=== PATIENT | male | born 1955 | race Caucasian/White ===

== ENCOUNTER → 2018-02-16 | Outpatient (CLI) | payer MEDICAID | LOC: FIMAGING 07:48 | PROVIDERS: ATTEND Internal Medicine Gastroenterology | DX: K82.8 Other specified diseases of gallbladder (principal) | CPT/HCPCS: 78227; A9537 ==

== ENCOUNTER 2018-03-27 06:24 | Day surgery (SDC) | payer MEDICAID ==
[~2018-03-27 06:24] MED LIST: cefOXitin SODIUM 2 GM in STERILE WATER INJ 21 ML IV ONE
[2018-03-27] MEDS ORDERED: LIDOCAINE 1% 2 ML INJ ID PRN (06:55)
[2018-03-27] MEDS ORDERED: LR 1,000 ML IV ONE (06:55)
[2018-03-27] MEDS ORDERED: BUPIVACAINE 0.5% 30 ML SDV ONE (06:58)
[2018-03-27] MEDS ORDERED: HEPARIN 1000 UNIT/1 ML MDV ONE (06:59)
[2018-03-27] MEDS ORDERED: ceFAZolin 1 GM/5 ML SYR ONE (06:59)
[2018-03-27] MEDS ORDERED: MIDAZOLAM 2 MG/2 ML VIAL IVP ONE (07:39)
--- NOTE | 2018-03-27 07:39 | PDANEPAE ---
ANE History of Present Illness presents for lap kaylyn ANE Past Medical History - Cardiovascular History Hx Hypertension: Yes Hx Arrhythmias: No Hx Chest Pain: No Hx Coronary Artery / Peripheral Vascular Disease: No Hx CHF / Valvular Disease: No Hx Palpitations: No - Pulmonary History Hx COPD: No Hx Asthma/Reactive Airway Disease: No Hx Recent Upper Respiratory Infection: No Hx Oxygen in Use at Home: No Hx Sleep Apnea: No Sleep Apnea Screening Result - Last Documented: Negative - Neurologic History Hx Cerebrovascular Accident: No Hx Seizures: No Hx Dementia: No - Endocrine History Hx Diabetes: No Hypothyroid: No Hyperthyroid: No Obesity: no - Renal History Hx Renal Disorders: No - Liver History Hx Hepatic Disorders: No - Neurological & Psychiatric Hx Hx Neurological and Psychiatric Disorders: No - Cancer History Hx Cancer: No - Congenital Disorder History Hx Congenital Disorders: No - GI History GERD: no Hx Gastrointestinal Disorders: Yes Gastrointestinal History Comment: epigastric pain x 1 yr. gallbladder pain - Other Health History Other Health History: "scabs over small cuts on body". Harvoni tx to eradicate Hep C - Chronic Pain History Chronic Pain: Yes (epigastric pain) - Surgical History Prior Surgeries: knee sx. L ankle scope 1989-created Staph infections - numerous sx I and D. microfracture sx- L ankle. R foot sx x 2 -rebuild calcaneous ANE Review of Systems Review of systems is: negative Review of Systems: - Exercise capacity METS (RN): 5 METS ANE Patient History - Allergies Allergies/Adverse Reactions: No Known Allergies Allergy (Verified 03/26/18 11:03) - Home Medications Home medications: home medication list seen and reviewed Home Medications: Lisinopril 06/21/16 [Last Taken Unknown] Nexium 06/21/16 [Last Taken Unknown] Dicyclomine 03/26/18 [Last Taken Unknown] - NPO status NPO Since - Liquids (Date): 03/27/18 NPO Since - Liquids (Time): 05:00 NPO Since - Solids (Date): 03/26/18 NPO Since - Solids (Time): 17:00 - Anes Hx Anes Hx: no prior problems - Smoking Hx Smoking Status: Never smoked - Family Anes Hx Family Anes Hx: none ANE Labs/Vital Signs - Vital Signs Blood Pressure: 138/92 Heart Rate: 56 Respiratory Rate: 16 O2 Sat (%): 92 Height: 177.8 cm Weight: 99.79 kg ANE Physical Exam - Airway Neck exam: FROM Mallampati Score: Class 1 Mouth exam: normal dental/mouth exam - Pulmonary Pulmonary: no respiratory distress - Cardiovascular Cardiovascular: regular rate and rhythym - ASA Status ASA Status: III ANE Anesthesia Plan Anesthesia Plan: general endotracheal anesthesia
[2018-03-27] MEDS ORDERED: fentaNYL 100 MCG/2 ML INJ ONE ×2 (07:43)
[2018-03-27] MEDS ORDERED: PROPOFOL 200 MG/20 ML VIAL ONE ×2 (07:43)
[2018-03-27] MEDS ORDERED: DEXAMETHASONE 4 MG/ML VIAL ONE (07:44)
[2018-03-27] MEDS ORDERED: ONDANSETRON 4 MG/2 ML VIAL ONE (07:44)
[2018-03-27] MEDS ORDERED: LIDOCAINE 2% 5 ML SDV ONE (07:45)
[2018-03-27] MEDS ORDERED: KETOROLAC 30 MG/1 ML SDV ONE (07:45)
--- NOTE | 2018-03-27 07:59 | PDHPUP ---
History & Physical Update H&P update statement: This history and physical update is based on an assessment of the patient which was completed after admission or registration (within 24 hours), but prior to the surgery/procedure. H&P update: H&P reviewed & patient examined, no change in patient's condition since H&P completed
[2018-03-27] MEDS ORDERED: SUGAMMADEX SODIUM 200 MG/2 ML VIAL IVP ONE (08:19)
[2018-03-27] MEDS ORDERED: epHEDrine SULFATE 10 MG/ML SYR ONE (08:23)
[2018-03-27] MEDS ORDERED: ONDANSETRON 4 MG/2 ML VIAL IVP PRN (08:39)
[2018-03-27] MEDS ORDERED: NALOXONE HCL 0.4 MG/ML INJ IVP PRN (08:39)
[2018-03-27] MEDS ORDERED: HYDROmorphONE/DILAUDID 2 MG/ML INJ IVP PRN (08:39)
[2018-03-27] MEDS ORDERED: LR 500 ML IV PRN (08:39)
[2018-03-27] MEDS ORDERED: oxyCODONE IR 5 MG TAB PO PRN (08:39)
[2018-03-27] MEDS ORDERED: fentaNYL 100 MCG/2 ML INJ IVP PRN (08:39)
[2018-03-27] MEDS ORDERED: HYDROCODONE/APAP 5/325 TAB PO PRN (08:39)
[2018-03-27] MEDS ORDERED: ACETAMINOPHEN 500 MG TAB PO PRN (08:39)
[2018-03-27] MEDS ORDERED: ALBUTEROL 3 ML DEYVIAL IH PRN (08:39)
[2018-03-27] MEDS ORDERED: LABETALOL HCL 5 MG/ML 20 ML MDV IVP PRN (08:39)
[2018-03-27] MEDS ORDERED: PROMETHAZINE HCL 25 MG/ML INJ IVP PRN (08:39)
--- NOTE | 2018-03-27 08:39 | POSTANESTH ---
Post Anesthetic Evaluation Cardiovascular Status: Normal, Stable Respiratory Status: Normal, Stable Level of Consciousness/Mental Status: Can Participate in Eval Pain Control: Adequate, Prn Tx Ordered Nausea/Vomiting Control: Adequate, Prn Tx Ordered Complications Possibly Related to Anesthesia: None Noted
--- NOTE | 2018-03-27 09:12 | POSTOPPROG ---
Post Op Note Date of Operation: 03/27/18 Surgeon: Damir Petty Stone Polisher Machine: Nona Hanley Anesthesiologist: Ricky Chicas Anesthesia: GET(General Endotracheal) Pre-op Diagnosis: biliary dyskinesia, umbilical hernia Post-op Diagnosis: same Procedure: lap kaylyn, umb hernia repair (no mesh) Findings: thin adames, no stones. small piece of adherent liver, 1 cm umb defect Inf/Abcess present in the surg proc area at time of surgery?: No EBL: Minimal Complications: none Specimen(s): gallbladder with liver bx to pathology
[2018-03-27 11:06] VITALS: BP 116/76
--- NOTE | 2018-04-14 19:03 | GOP ---
[f rep st] OPERATIVE REPORT DATE OF OPERATION: 03/27/2018 SURGEON: Damir Petty MD ANESTHESIOLOGIST: Dr. Chicas PREOPERATIVE DIAGNOSIS: Biliary dyskinesia and an umbilical hernia. POSTOPERATIVE DIAGNOSIS: Biliary dyskinesia and an umbilical hernia. PROCEDURE PERFORMED: Laparoscopic cholecystectomy, umbilical hernia repair, wedge biopsy. FINDINGS: The patient was found have a thin wall of the gallbladder with no stones. A small liver n odule adherent to the gallbladder, and 1 cm umbilical defect. ESTIMATED BLOOD LOSS: Negligible. DESCRIPTION OF PROCEDURE: The patient taken to the operating room, where he received satisfactory ge neral endotracheal anesthesia by Dr. Chicas. Placed in the supine position, prepped and draped in the usual sterile fashion. A periumbilical incision was made. Dissection was carried down through s ubcutaneous tissue, and the umbilical hernia sac was dissected free from surrounding subcutaneous tis jerardo and off the back of the umbilical skin. A Veress needle was introduced through the sac. Pneumop eritoneum was established. A trocar was introduced. Laparoscope introduced. Good visualization was obtained. Three other trocars placed in the upper abdomen under direct vision. The gallbladder was elevated up as noted above. A nodule of liver tissue was adherent to the gallbladder and this was e xcised with electrocautery and sent for a liver biopsy. The cystic triangle was then carefully expos ed. The cystic duct and cystic artery were isolated. A good clear view was established, and both st ructures were multiply hemoclipped and divided with care to avoid injury to the common bile duct, whi ch was clearly visualized. The peritoneum over the gallbladder was incised. The gallbladder was dis sected free in the bed of the hepatic fossa and extracted through the umbilical port site. Hemostasi s was carefully obtained. The wound was irrigated. Trocars removed under direct vision. Trocar sit es were closed with 4-0 Monocryl subcuticular stitch for the skin. All layers infiltrated with 0.5% Marcaine. Attention was turned to the umbilical hernia. The hernia sac was dissected free and elevated down aw ay from the fascia. The sac was opened at the fascial level. Its contents were reduced. A 1 cm def ect was encountered. This was closed in a [id number]-type closure with interrupted 0 Surgilon m attress sutures in a 2-layer fashion. Wounds infiltrated with 0.5% Marcaine. Subcu was closed with 3-0 Vicryl, skin with a 4-0 Monocryl subcuticular stitch. All layers infiltrated with 0.5% Marcaine. COMPLICATIONS: None. Taken to recovery room in good condition. /[id number]/MODL
== END 2018-03-27 11:27 | disposition home or self-care (01) ==
LOC: FSGY 06:24
PROVIDERS: ATTEND Surgery
PROC: 0WQF4ZZ Repair Abdominal Wall, Percutaneous Endoscopic Approach (ICD-10-PCS; principal; 2018-03-27 08:00)
PROC: 0FB04ZX Excision of Liver, Percutaneous Endoscopic Approach, Diagnostic (ICD-10-PCS; principal; 2018-03-27 08:00)
PROC: 0FT44ZZ Resection of Gallbladder, Percutaneous Endoscopic Approach (ICD-10-PCS; principal; 2018-03-27 08:00)
DX: K81.1 Chronic cholecystitis (principal); K42.9 Umbilical hernia without obstruction or gangrene; R10.13 Epigastric pain; K76.0 Fatty (change of) liver, not elsewhere classified; I10 Essential (primary) hypertension; B19.20 Unspecified viral hepatitis C without hepatic coma; Z87.891 Personal history of nicotine dependence; Z86.010 Personal history of colon polyps
CPT/HCPCS: J0694; J1100; J1885; J2250; J2405; J2704; J3010